=== PATIENT | female | born 1970 | race Caucasian/White ===

== ENCOUNTER 2018-12-19 15:09 | Emergency (ER) | payer MEDICAID ==
[~2018-12-19] VITALS: Ht 152.4 cm; Wt 98.5 kg
[2018-12-19 15:16] VITALS: BP 139/56; Ht 152.4 cm; Wt 98.5 kg
== END 2018-12-19 15:46 | disposition home or self-care (01) ==
LOC: ED 15:09
DX: B02.9 Zoster without complications (principal); J45.909 Unspecified asthma, uncomplicated; G43.909 Migraine, unspecified, not intractable, without status migrainosus; Z88.0 Allergy status to penicillin